=== PATIENT | male | born 1960 | race Caucasian/White ===

== ENCOUNTER 2018-02-06 13:05 | Emergency (ER) | payer OTHER ==
[2018-02-06 13:12] VITALS: BP 178/110; PULSE 88; TEMP 98.1; BMI 48.8
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
[2018-02-06] MEDS ORDERED: DIPHTH,PERTUSS(ACELL),TET 0.5 ML DISP.SYRIN IM ONE (13:38)
[2018-02-06] MEDS ORDERED: SULFAMETHOXAZOLE/TRIMETHOPRIM 800MG/160MG D.S. TABLET PO ONE (13:38)
[2018-02-06] MEDS ORDERED: SULFAMETHOXAZOLE/TRIMETHOPRIM 800MG/160MG D.S. TABLET ONE (13:43)
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
== END 2018-02-06 14:02 | disposition home or self-care (01) ==
LOC: JER 13:05
PROC: 3E0234Z Introduction of Serum, Toxoid and Vaccine into Muscle, Percutaneous Approach (ICD-10-PCS; principal; 2018-02-06)
DX: S31.114A Laceration without foreign body of abdominal wall, left lower quadrant without penetration into peritoneal cavity, initial encounter (principal); X99.8XXA Assault by other sharp object, initial encounter; Y93.89 Activity, other specified; Y92.414 Local residential or business street as the place of occurrence of the external cause; Y99.8 Other external cause status; I10 Essential (primary) hypertension; E11.9 Type 2 diabetes mellitus without complications; J44.9 Chronic obstructive pulmonary disease, unspecified; G47.33 Obstructive sleep apnea (adult) (pediatric); Z88.1 Allergy status to other antibiotic agents
CPT/HCPCS: 90471; 90715; 99281-25

== ENCOUNTER 2018-02-11 22:29 | Emergency (ER) | payer OTHER ==
[2018-02-11 22:39] VITALS: BP 160/00; PULSE 88; TEMP 98; BMI 47.5
--- NOTE | 2018-02-11 22:56 | PDOC ---
History of Present Illness - General Chief Complaint: Wound Stated Complaint: WOUND Time Seen by Provider: 02/11/18 22:47 History Source: Patient - History of Present Illness Initial Comments: 02/11/18 23:08 58 year old male left abdominal wound seen in the ED 2 days ago. patient here for a wound check Past History - Past Medical History Allergies/Adverse Reactions: Allergies Allergy/AdvReac Type Severity Reaction Status Date / Time vancomycin Allergy Intermediate Hives Verified 02/11/18 22:40 Penicillins Allergy Verified 02/11/18 22:40 Home Medications: Ambulatory Orders Amlodipine/Valsartan [Exforge 10-320 mg Tablet] 1 tab PO DAILY 12/08/13 Aspirin [ASA -] 81 mg PO DAILY 12/08/13 Albuterol Sulfate Inhaler - [Ventolin HFA Inhaler -] 90 mcg IN Q4HWA PRN Mometasone Furoate [Asmanex] 220 mcg IH BID 05/12/15 Naproxen [EC-Naprosyn 375 MG] 375 mg PO BID 05/12/15 Clindamycin [Cleocin -] 450 mg PO Q6HPO #30 capsule 05/14/15 Ibuprofen [Motrin -] 400 mg PO QID PRN #20 tablet 07/05/15 Sulfamethoxazole/Trimethoprim [Bactrim Ds -] 1 tab PO BID #14 tablet 02/06/18 COPD: Yes Diabetes: Yes HTN: Yes - Surgical History Abdominal Surgery: Yes (UMBILICAL HERNIA) Appendectomy: Yes - Immunization History Immunization Up to Date: Yes - Suicide/Smoking/Psychosocial Hx Smoking Status: No Smoking History: Never smoked Have you smoked in the past 12 months: No Number of Cigarettes Smoked Daily: 0 Hx Alcohol Use: No Drug/Substance Use Hx: No Substance Use Type: None Hx Substance Use Treatment: No *Physical Exam - Vital Signs Last Vital Signs Temp Pulse Resp BP Pulse Ox 98 F 88 24 160/00 96 02/11/18 22:38 02/11/18 22:38 02/11/18 22:38 02/11/18 22:38 02/11/18 22:38 - Physical Exam General Appearance: Yes: Appropriately Dressed Respiratory/Chest: positive: Labored Respiration (normal as per patient. current everyday smoker) *DC/Admit/Observation/Transfer Diagnosis at time of Disposition: Visit for wound check - Discharge Dispostion Disposition: HOME - Referrals - Patient Instructions Printed Discharge Instructions: DI for Wound Infection Additional Instructions: keep wound clean and dry. start your antibiotics as prescribed. follow up with your doctor as soon as possible. return to the ER if symptoms worsen. - Post Discharge Activity
== END 2018-02-11 23:19 | disposition home or self-care (01) ==
LOC: JER 22:29
DX: Z48.02 Encounter for removal of sutures (principal)
CPT/HCPCS: 99281-25

== ENCOUNTER 2019-03-22 15:02 | Emergency (ER) | payer OTHER ==
[2019-03-22 15:13] VITALS: TEMP 97.9; BMI 40.6
--- NOTE | 2019-03-22 15:14 | PDOC ---
Rapid Medical Evaluation Time Seen by Provider: 03/22/19 15:08 Medical Evaluation: Allergies Allergy/AdvReac Type Severity Reaction Status Date / Time vancomycin Allergy Intermediate Hives Verified 02/11/18 22:40 Penicillins Allergy Verified 02/11/18 22:40 03/22/19 15:09 I have performed a brief in-person evaluation of this patient. The patient presents with a chief complaint of: Facial droop/numbness, unable to close R eye x 4 days, no weakness to extremities, STONE, dizziness, visual changes, n/v. Morbid obesity, HTN, borderline DM, refuses all meds per pt Pertinent physical exam findings: Significantly hypertensive w/ R facial droop w / inability to close R eye or raise R brow c/w Rose's I have ordered the following: CT head/labs The patient will proceed to the ED for further evaluation. 03/22/19 15:15 Discharge Disposition - Diagnosis Facial droop - Referrals - Patient Instructions - Post Discharge Activity
[2019-03-22] MEDS ORDERED: SODIUM CHLORIDE 1,000 ML IV STA (15:37)
--- NOTE | 2019-03-22 15:37 | PDOC ---
History of Present Illness - General Chief Complaint: CVA/TIA Stated Complaint: INFECTION Time Seen by Provider: 03/22/19 15:08 History Source: Patient Exam Limitations: No Limitations - History of Present Illness Initial Comments: 03/22/19 15:55 59 yo M with a hx of HTN and HLD who is a chronic marijuana smoker (last use today) presents to the emergency department with right sided facial droop for the previous 4 days. Per the patient, he has had this before 4 months ago that resolved spontaneously in less than a few days. He stated the right sided facial droop occurred spontaneously, denying trauma, RUE and RLE weakness, headaches, nausea, vomiting, and lightheadedness. He endorses right visual blurriness. He states he is non compliant with his medications and states he used to be on aspirin but "months ago". Denies a hx of CVA and OH. No hx of arrhythmia. Denies the following: fevers, chills, chest pain, SOB, abdominal pain, dysuria, hematuria, diarrhea, leg pain/swelling, and hematochezia. Shx: Hernia repair, appendectomy Meds: None Allergies: PCN, vancomycin. Social: Denies tobacco and alcohol. ENdorses marijuana smoking. Past History - Past Medical History Allergies/Adverse Reactions: Allergies Allergy/AdvReac Type Severity Reaction Status Date / Time vancomycin Allergy Intermediate Hives Verified 02/11/18 22:40 Penicillins Allergy Verified 02/11/18 22:40 Home Medications: Ambulatory Orders Amlodipine/Valsartan [Exforge 10-320 mg Tablet] 1 tab PO DAILY 12/08/13 Aspirin [ASA -] 81 mg PO DAILY 12/08/13 Albuterol Sulfate Inhaler - [Ventolin HFA Inhaler -] 90 mcg IN Q4HWA PRN Mometasone Furoate [Asmanex] 220 mcg IH BID 05/12/15 Naproxen [EC-Naprosyn 375 MG] 375 mg PO BID 05/12/15 Clindamycin [Cleocin -] 450 mg PO Q6HPO #30 capsule 05/14/15 Ibuprofen [Motrin -] 400 mg PO QID PRN #20 tablet 07/05/15 Sulfamethoxazole/Trimethoprim [Bactrim Ds -] 1 tab PO BID #14 tablet 03/30/18 Polyvinyl Alcohol/Povidone [Artificial Tears Drops] 15 ml OP DAILY PRN #2 drops 03/22/19 Valacyclovir HCl [Valtrex -] 1,000 mg PO TID #21 tablet 03/22/19 predniSONE [Deltasone -] 60 mg PO DAILY #21 tablet 03/22/19 COPD: Yes Diabetes: Yes HTN: Yes - Surgical History Abdominal Surgery: Yes (UMBILICAL HERNIA) Appendectomy: Yes - Immunization History Immunization Up to Date: No - Suicide/Smoking/Psychosocial Hx Smoking Status: No Smoking History: Current every day smoker Have you smoked in the past 12 months: No Number of Cigarettes Smoked Daily: 0 Information on smoking cessation initiated: No Hx Alcohol Use: No Drug/Substance Use Hx: Yes (MARIJUANA) Substance Use Type: None Hx Substance Use Treatment: No *Physical Exam - Vital Signs Last Vital Signs Temp Pulse Resp BP Pulse Ox 97.9 F 83 18 183/122 H 95 03/22/19 15:10 03/22/19 15:10 03/22/19 15:10 03/22/19 15:10 03/22/19 15:10 - Physical Exam General Appearance: Yes: Nourished, Appropriately Dressed, Obese. No: Apparent Distress, Intoxicated HEENT: positive: EOMI, CON, Normal Voice, Symmetrical, Pharynx Normal NIH Stroke Scale - Last Known Well Date/Time & Onset Date Last Known Well: 03/18/19 Time Last Known Well: 12:00 - Initial Evaluation Level of consciousness: Alert Ask patient the month and their age: Answers both correctly Ask patient to open & close eyes; make fist and let go: Obeys both correctly Best gaze (horizontal eye movement): Normal Visual field testing: No visual field loss Facial paresis (Show teeth/raise eyebrows/close eyes tight): Complete paralysis of one or both sides (Upper and lower face) Motor Function: Left Arm: Normal Motor Function: Right Arm: Normal (extends arm 90 (or 45) degrees for 10 seconds without drift Motor Function: Left Leg: Normal (extends leg 30 degrees for 5 seconds without drift) Motor Function: Right Leg: Normal (extends leg 30 degrees for 5 seconds without drift) Limb Ataxia: No ataxia Sensory(Use pinprick test arms,legs,trunk,face/side to side): Normal Best language (Describe picture, name items, read sentences): No Aphasia Dysarthria (read several words): Mild to moderate slurring of words Extinction and Inattention: No abnormality - Total Score NIH Stroke Scale Score: 4 tPA Exclusion Checklist 0-3hr - Time Elapsed Date last known well: 03/18/19 Time last known well: 12:00 Elaspsed time: 4 Day(s) and 5 Hour(s) and 38 Minutes - Thrombolytic Therapy Candidate Is the patient eligible for Thrombolytic Therapy?: No - Exclusion Criteria 0-3hr SBP greater than 185 or DBP greater than 110mmHg despite tx: No Recent IC/spinal surgery,head trauma or stroke w/in last 3mo: No Hx of previous IC hemorrhage, IC neoplasm, AVM or aneurysm: No Active internal bleeding: No Blding diathesis(low plt ct, inc PTT,INR>1.7 or use of NOAC): No Symptoms suggest subarachnoid hemorrhage: No CT demonstrates multilobar infarct(>1/3 cerebral hemiphere): No Arterial puncture at noncompressible site in previous 7 days: No Blood glucose concentration less than 50mg/dL (2.7mmol/L): No - Relative Exclusion Criteria 0-3h Life expectancy <1yr/severe co-morbid illness/[employer] MA[employer]GER on admit: No : No Patient/family refused: No Rapid improvement: No Stroke severity too mild: Yes Recent acute OH (w/in previous 3 months): No Seizure at onset with postictal residual neuro impairments: No Major surgery or serious trauma w/in previous 14 days: No Recent GI or hemorrhage (w/in previous 21 days): No - Ineligibility reason(s) Reasons No tPA given: Outside of window - delayed arrival *DC/Admit/Observation/Transfer Diagnosis at time of Disposition: Facial droop - Discharge Dispostion Disposition: HOME Decision to Admit order: No - Prescriptions Prescriptions: Polyvinyl Alcohol/Povidone [Artificial Tears Drops] 15 ml OP DAILY PRN #2 drops PRN Reason: Dry Eyes predniSONE [Deltasone -] 60 mg PO DAILY #21 tablet Valacyclovir HCl [Valtrex -] 1,000 mg PO TID #21 tablet - Referrals Referrals: Dani Julien [Primary Care Provider] - - Patient Instructions Printed Discharge Instructions: DI for Rose's Palsy Additional Instructions: you were seen for your facial droop. your head ct does not show a head bleed. please take the medications as prescribed. please return to the emergency department if you have worsening symptoms or new concerning symptoms such as arm or leg weakness, worsening slurred speech, and confusion. thank you. - Post Discharge Activity Forms/Work/School Notes: Back to Work
[2019-03-22 15:38] LABS: BASO % 0.4 % (0-2.0); EOS % 1.3 % (0-4.5); HEMOGLOBIN 17.8 GM/dL (11.7-16.9); MCH 30.6 pg (25.7-33.7); MCHC 33.6 g/dl (32.0-35.9); MEAN CELL VOLUME 91.3 fl (80-96); MEAN PLT VOLUME 8.9 fl (7.5-11.1); MONO % 5.7 % (3.8-10.2); NEUT % 65.6 % (42.8-82.8); PLATELET COUNT 296 K/MM3 (134-434); RDW 13.1 % (11.9-15.9); WHITE BLOOD COUNT 11.1 K/mm3 (4.0-10.0)
[2019-03-22 15:58] LABS: ALBUMIN 3.7 g/dl (3.4-5.0); ALK PHOS 70 U/L (45-117); ANION GAP 7 MMOL/L (8-16); BILIRUBIN,TOTAL 0.8 mg/dL (0.2-1); BLOOD UREA NITROGEN 20 mg/dL (7-18); CALCIUM 9.4 mg/dL (8.5-10.1); CHLORIDE 100 mmol/L (98-107); CO2 27 mmol/L (21-32); GLUCOSE,RANDOM 200 mg/dL (74-106); POTASSIUM 4.2 mmol/L (3.5-5.1); SGOT/AST 28 U/L (15-37); SGPT/ALT 43 U/L (13-61); SODIUM 134 mmol/L (136-145); TOT PROT 7.3 g/dl (6.4-8.2)
[2019-03-22 16:24] LABS: CHOLESTEROL 158 mg/dL (50-200); HDL CHOLESTEROL 40 mg/dL (40-60); TRIGLYCERIDES 196 mg/dL (0-150)
[2019-03-22 16:27] LABS: INR 1.03 (0.83-1.09); PROTHROMBIN TIME (PATIENT) 12.1 SEC (9.7-13.0)
--- NOTE | 2019-03-22 17:32 | PDOC ---
Documentation entered by Brennon Agee SCRIBE, acting as scribe for Cody Gonzalez MD. Cody Gonzalez MD: This documentation has been prepared by the Anuel cobb Matthew, SCRIBE, under my direction and personally reviewed by me in its entirety. I confirm that the documentation accurately reflects all work, treatment, procedures, and medical decision making performed by me. Attending Attestation - Resident Resident Name: Bernardo Sal - ED Attending Attestation I have performed the following: I have examined & evaluated the patient, The case was reviewed & discussed with the resident, I agree w/resident's findings & plan, Exceptions are as noted - HPI HPI: 03/22/19 17:40 59 year old male with history of HTN, DM presents with several days of right facial droop. He noted that he was unable to close right eye all the way and feels some numbness along the right side of face. No affect on his upper or lower extremities. His twin brother also had Rose's palsy prior. No recent illnesses. no camping or recent travelling. Unable to wrinkle right forehead. - Physicial Exam PE: 03/22/19 17:50 GENERAL: Awake, alert, and fully oriented, in no acute distress HEAD: No signs of trauma EYES: EOMI, sclera anicteric, conjunctiva clear ENT: Auricles normal inspection, hearing grossly normal, nares patent, Moist mucosa NECK: Normal ROM, supple, LUNGS: Breath sounds equal, clear to auscultation bilaterally. No wheezes, and no crackles HEART: Regular rate and rhythm, normal S1 and S2, no murmurs, rubs or gallops ABDOMEN: Soft, nontender, No guarding, no rebound. No masses EXTREMITIES: Normal range of motion, no edema. No clubbing or cyanosis. No cords, erythema, or tenderness NEUROLOGICAL: Normal speech, R sided facial droop, unable to close R eyelid all the way, unable to wrinkle R forehead. no pronator drift, 5/5 strength upper and lower extremities. Sensation intact throughout. Finger to nose intact. SKIN: Warm, Dry, normal turgor, no rashes or lesions noted. - Medical Decision Making 03/22/19 17:55 Vital Signs Temp Pulse Resp BP Pulse Ox 97.9 F 80 20 170/98 96 03/22/19 15:10 03/22/19 17:30 03/22/19 17:30 03/22/19 17:30 03/22/19 17:[address] and labs reviewed. No acute findings. Pt's physical findings c/w rose's palsy. Artificial tears for the eyes. Tape eyelids when sleeping. Prednisone 60 mg x 7 days. Valacyclovir 1000 mg TID x 7 days. Follow up with PMD Heart Score/ECG Review #1 ECG reviewed & interpreted by me at: 16:50 03/22/19 17:33 NSR 81, QTC 499 msec, no std/emilee, normal axis, normal intervals NIH Stroke Scale - Last Known Well Date/Time & Onset Date Last Known Well: 03/18/19 - Initial Evaluation Level of consciousness: Alert Ask patient the month and their age: Answers both correctly Ask patient to open & close eyes; make fist and let go: Obeys both correctly Best gaze (horizontal eye movement): Normal Visual field testing: No visual field loss Facial paresis (Show teeth/raise eyebrows/close eyes tight): Complete paralysis of one or both sides (Upper and lower face) Motor Function: Left Arm: Normal Motor Function: Right Arm: Normal (extends arm 90 (or 45) degrees for 10 seconds without drift Motor Function: Left Leg: Normal (extends leg 30 degrees for 5 seconds without drift) Motor Function: Right Leg: Normal (extends leg 30 degrees for 5 seconds without drift) Limb Ataxia: No ataxia Sensory(Use pinprick test arms,legs,trunk,face/side to side): Normal Best language (Describe picture, name items, read sentences): No Aphasia Dysarthria (read several words): Normal articulation Extinction and Inattention: No abnormality - Total Score NIH Stroke Scale Score: 3
[2019-03-22] MEDS ORDERED: ONDANSETRON 4 MG/2 ML VIAL IVPUSH ONE (17:36)
[2019-03-22] MEDS ORDERED: ONDANSETRON 4 MG/2 ML VIAL ONE (17:52)
[2019-03-22 18:23] VITALS: BP 151/102; PULSE 78
--- NOTE | 2019-03-23 12:09 | EKG ---
Test Reason : Blood Pressure : / mmHG Vent. Rate : 081 BPM Atrial Rate : 081 BPM P-R Int : 154 ms QRS Dur : 080 ms QT Int : 430 ms P-R-T Axes : 053 003 051 degrees QTc Int : 499 ms NORMAL SINUS RHYTHM PROLONGED QT ABNORMAL ECG WHEN COMPARED WITH ECG OF 12-OCT-2004 11:48, T WAVE AMPLITUDE HAS DECREASED IN ANTEROLATERAL LEADS Confirmed by MD Art, Rafi ([id number]) on 03/23/2019 12:08:49 PM Referred By: Confirmed By:Rafi Cordova MD
== END 2019-03-22 18:25 | disposition home or self-care (01) ==
LOC: JER 15:02
PROC: 3E0337Z Introduction of Electrolytic and Water Balance Substance into Peripheral Vein, Percutaneous Approach (ICD-10-PCS; principal; 2019-03-22)
DX: R29.810 Facial weakness (principal); E78.5 Hyperlipidemia, unspecified; I10 Essential (primary) hypertension; J44.9 Chronic obstructive pulmonary disease, unspecified; E11.9 Type 2 diabetes mellitus without complications; F17.210 Nicotine dependence, cigarettes, uncomplicated
CPT/HCPCS: 36415; 70450-TC; 71045-TC-FY; 80053; 80061; 81003; 82550; 83721; 84484; 85025; 85610; 93005; 93010; 99283-25; J7030

== ENCOUNTER 2019-04-05 19:32 | Emergency (ER) | payer OTHER | END 2019-04-05 21:16 | disposition home or self-care (01) | LOC: JER 19:32 ==

== ENCOUNTER 2019-08-14 16:19 | Emergency (ER) | payer OTHER ==
[2019-08-14 16:41] VITALS: BP 152/87; PULSE 84; TEMP 98.6; BMI 43.3
--- NOTE | 2019-08-14 16:48 | PDOC ---
History of Present Illness - General Chief Complaint: Wound Stated Complaint: INFECTION ON SKIN - History of Present Illness Initial Comments: The pt is a 59M w/ a history of HTN, HLD, and chronic inguinal tinea who presents for a right thumb lesion that has been present for 1 month which is now itching and cracked. The pt endorses sharp pain at the site of the lesion that does not radiate is worse with movement and touch and is not alleviated by anything he can identify. He also presents for penile itching which has been chronic and intermittently alleviated by nystatin powder. He is out of the powder and has not been using a drying powder throughout the day to prevent symptoms. Denies fevers/chills, chest pain, trouble breathing, dysuria, hematura, penile discharge, or changes in sensation 08/14/19 17:22 Past History - Past Medical History Allergies/Adverse Reactions: Allergies Allergy/AdvReac Type Severity Reaction Status Date / Time vancomycin Allergy Intermediate Hives Verified 08/14/19 16:30 Penicillins Allergy Verified 08/14/19 16:30 Home Medications: Ambulatory Orders Amlodipine/Valsartan [Exforge 10-320 mg Tablet] 1 tab PO DAILY 12/08/13 Aspirin [ASA -] 81 mg PO DAILY 12/08/13 Albuterol Sulfate Inhaler - [Ventolin HFA Inhaler -] 90 mcg IN Q4HWA PRN Mometasone Furoate [Asmanex] 220 mcg IH BID 05/12/15 Naproxen [EC-Naprosyn 375 MG] 375 mg PO BID 05/12/15 Ibuprofen [Motrin -] 400 mg PO QID PRN #20 tablet 07/05/15 Sulfamethoxazole/Trimethoprim [Bactrim Ds -] 1 tab PO BID #14 tablet 02/06/18 Valacyclovir HCl [Valtrex -] 1,000 mg PO TID #21 tablet 03/22/19 Clindamycin [Cleocin -] 450 mg PO Q6H #28 capsule 04/05/19 Polyvinyl Alcohol/Povidone [Artificial Tears Drops] 15 ml OD PRN #2 bottle 04/05 predniSONE [Deltasone -] 60 mg PO DAILY #30 tablet 04/05/19 Dextran 70/Hypromellose/Pf [Artificial Tears Drops] 1 each OD TID #1 bottle 03/28 Mineral Oil/Pet Hy-Phl [Aquaphor] 1 applic TP DAILY #1 jar 08/14/19 Nystatin Powder [Nystop Powder -] 15 gm TP BID #1 bottle 08/14/19 Sulfamethoxazole/Trimethoprim [Bactrim Ds -] 1 tab PO BID #14 tablet 08/14/19 COPD: Yes Diabetes: Yes HTN: Yes - Surgical History Abdominal Surgery: Yes (UMBILICAL HERNIA) Appendectomy: Yes - Immunization History Immunization Up to Date: No - Psycho Social/Smoking Cessation Hx Smoking Status: No Smoking History: Former smoker Have you smoked in the past 12 months: No Number of Cigarettes Smoked Daily: 0 If you are a former smoker, when did you quit?: 2018 Information on smoking cessation initiated: No Hx Alcohol Use: No Drug/Substance Use Hx: No Substance Use Type: None Hx Substance Use Treatment: No Review of Systems - Review of Systems Able to Perform ROS?: Yes Comments:: GENERAL/CONSTITUTIONAL: No fever or chills. No weakness HEAD, EYES, EARS, NOSE AND THROAT: No change in vision. No change in hearing. No sore throat CARDIOVASCULAR: No chest pain or shortness of breath RESPIRATORY: Denies cough, hemoptysis GASTROINTESTINAL: No nausea, vomiting, diarrhea or constipation. GENITOURINARY: No dysuria, frequency, or change in urination MUSCULOSKELETAL: No joint or muscle swelling or pain. No neck or back pain SKIN: +right thumb lesion and balanitis NEUROLOGIC: No headache, vertigo, loss of consciousness, or change in strength/ sensation ENDOCRINE: No increased thirst. No abnormal weight change HEMATOLOGIC/LYMPHATIC: No anemia, easy bleeding, or history of blood clots ALLERGIC/IMMUNOLOGIC: No hives or skin allergy 08/14/19 16:47 Is the patient limited Maldivian proficient: No *Physical Exam - Vital Signs Last Vital Signs Temp Pulse Resp BP Pulse Ox 98.6 F 84 20 152/87 99 08/14/19 16:33 08/14/19 16:33 08/14/19 16:33 08/14/19 16:33 08/14/19 16:33 - Physical Exam Comments: GENERAL: Awake, alert, and oriented to person/place/time, in no acute distress HEAD: No signs of trauma, normocephalic, atraumatic EYES: PERRLA, EOMI, sclera anicteric, conjunctiva clear ENT: Hearing grossly normal, nares patent, oropharynx clear without exudates. Moist mucosa LUNGS: No distress, speaks in full sentences, clear to auscultation bilaterally HEART: Regular rate and rhythm, normal S1 and S2, no murmurs appreciated, peripheral pulses normal and equal bilaterally ABDOMEN: Soft, protuberant, nontender, normoactive bowel sounds. No guarding, no rebound. No masses : Balanitis w/o cellulitis, no scrotal erythema or testicular pain, no fungal infection in groin creases, no penile discharge EXTREMITIES: R thumb wart lesion with open cut w/o surrounding cellulitis NEUROLOGICAL: Cranial nerves II through XII grossly intact. Normal speech, normal gait, no focal sensorimotor deficits SKIN: Warm, Dry, and lesion as above 08/14/19 16:48 Medical Decision Making - Medical Decision Making The pt is a 59M w/ a history of DM, HTN, HLD who presents for evaluation of a right hand lesion and balanitis ED Course Rx for Bactrim, Nystatin powder, aquaphor, and eye drops sent to pt's pharmacy Referrals for dermatology and urology provided Pt educated on wound care and keeping affected area more dry and applying moisturizer and neosporin to his right hand Plan for D/C w/ PCP and specialists Discharge instruction and return precautions given Pt in agreement and verbalized understanding Dispo: home 08/14/19 17:17 Discharge - Discharge Information Problems reviewed: Yes Clinical Impression/Diagnosis: Balanitis, Rose's palsy Open wound of right hand Qualifiers: Encounter type: initial encounter Open wound type: unspecified Foreign body presence: without foreign body Qualified Code(s): S61.401A - Unspecified open wound of right hand, initial encounter Condition: Stable Disposition: HOME - Admission No - Additional Discharge Information Prescriptions: Dextran 70/Hypromellose/Pf [Artificial Tears Drops] 1 each OD TID #1 bottle Mineral Oil/Pet Hy-Phl [Aquaphor] 1 applic TP DAILY #1 jar Nystatin Powder [Nystop Powder -] 15 gm TP BID #1 bottle Sulfamethoxazole/Trimethoprim [Bactrim Ds -] 1 tab PO BID #14 tablet - Follow up/Referral Referrals: Dani Julien [Primary Care Provider] - Guerita Martinez MD [Staff Physician] - Christopher Monaco MD [Non Staff, Medical] - Dani Cortes MD [Non Staff, Medical] - Jaspal Oreilly MD [Staff Physician] - Jesus Serrato MD [Staff Physician] - - Patient Discharge Instructions Patient Printed Discharge Instructions: DI for Balanitis, DI for Jock Itch Additional Instructions: You were seen in the Emergency Department for evaluation of balanitis ( inflammation of the glands of the penis) and a right hand lesion. A prescription was sent to your pharmacy for antibiotics, nystatin powder, aquaphor, and eye drops, take as directed. Review the handouts provided at discharge. Follow up with the dermatology and urology referrals given. Also follow up with your primary care provider. Return to the Emergency Department if you develop fevers/chills, chest pain, trouble breathing, abdominal pain, blood in your urine/stool, worsening symptoms, or any new/concerning symptoms. - Post Discharge Activity
--- NOTE | 2019-08-14 17:01 | PDOC ---
Attending Attestation - Resident Resident Name: KirbyRishi - ED Attending Attestation I have performed the following: I have examined & evaluated the patient, The case was reviewed & discussed with the resident, I agree w/resident's findings & plan, Exceptions are as noted - HPI HPI: 08/14/19 17:32 Mr Aranda is a 59 M w/ a history of HTN, HLD, and chronic inguinal tinea who presents for a right thumb lesion that has been present for 1 month which is now itching and cracked. No drainage. No erythema. Pt was tempted to file down the lesion with an [employer] board (but did not) As a result of his hand dryness, he has noticed painful skin cracking, no active bleeding Pt also notes, that he has had penile itching He was seen by his doctor was previously and started on nystatin powder. Patient uses this intermittently. He notes that his penile region is pruritic, and this is resulted in excoriation of his skin. No fevers or chills. No surrounding erythema No drainage No history of STDs 08/14/19 17:22 - Physicial Exam PE: 08/14/19 17:01 GENERAL: The patient is in no acute distress, ENT: Ears normal, nares patent, oropharynx clear without exudates. Moist mucous membranes. No oral lesions NECK: Normal range of motion, supple LUNGS: Breath sounds equal, clear to auscultation bilaterally. No wheezes, and no crackles. HEART:Regular rate and rhythm, normal S1 and S2 without murmur, rub or gallop. ABDOMEN: Soft, protruberant, nontender, normoactive bowel sounds. EXTREMITIES: Normal range of motion, no edema. NEUROLOGICAL: Cranial nerves II through XII grossly intact. Normal speech. No focal neurological deficits. SKIN: Warm, Dry, normal turgor, no rashes or lesions noted. Penis: several superficial excoriated lesions on the shaft of the penis, no erythema No groin erythema or sattelite lesions Right thumb with 2cm fungal lesion No perinneal erythema or necrosis 08/14/19 18:03 - Medical Decision Making 08/14/19 18:05 Will 1) refer to derm for removal of right thumb wart 2) bacitracin for the skin cracking to prevent infection 3) Penile changes - will give abx, nystatin, emollient cream to prevent skin break down 4) Pt asked to dry his skin completely before getting dressed Will discharge to home Will ask pt to follow up with Derm and Urology Return to the ER for any other concerns or complaints
[2019-08-14] MEDS ORDERED: SULFAMETHOXAZOLE/TRIMETHOPRIM 800MG/160MG D.S. TABLET PO ONE (17:24)
[2019-08-14] MEDS ORDERED: SULFAMETHOXAZOLE/TRIMETHOPRIM 800MG/160MG D.S. TABLET ONE (17:37)
== END 2019-08-14 18:07 | disposition home or self-care (01) ==
LOC: JER 16:19
DX: N48.1 Balanitis (principal); L98.8 Other specified disorders of the skin and subcutaneous tissue; S61.001A Unspecified open wound of right thumb without damage to nail, initial encounter; X58.XXXA Exposure to other specified factors, initial encounter; Y93.9 Activity, unspecified; Y92.018 Other place in single-family (private) house as the place of occurrence of the external cause; Y99.8 Other external cause status; I10 Essential (primary) hypertension; E11.9 Type 2 diabetes mellitus without complications; J44.9 Chronic obstructive pulmonary disease, unspecified; E78.5 Hyperlipidemia, unspecified; B35.8 Other dermatophytoses; Z88.0 Allergy status to penicillin; Z88.1 Allergy status to other antibiotic agents
CPT/HCPCS: 99282-25

== ENCOUNTER 2022-05-28 11:38 | Observation (INO) | payer OTHER ==
[2022-05-28 13:01] VITALS: BMI 34.3
[2022-05-28 16:39] LABS: BASO % 0.5 % (0-2.0); EOS % 1.2 % (0-4.5); HEMATOCRIT 44.9 % (35.4-49); HEMOGLOBIN 15.5 GM/dL (11.7-16.9); LYMPH % 18.8 % (8-40); MCH 31.2 pg (25.7-33.7); MCHC 34.6 g/dl (32.0-35.9); MEAN CELL VOLUME 90.1 fl (80-96); NEUT % 70.5 % (42.8-82.8); PLATELET COUNT 395 10^3/uL (134-434); RBC 4.98 M/mm3 (4.00-5.60); RDW 12.5 % (11.9-15.9); WHITE BLOOD COUNT 9.4 K/mm3 (4.0-10.0)
[2022-05-28 16:48] LABS: CALCIUM 9.2 mg/dL (8.5-10.1)
[2022-05-28 16:49] LABS: ALBUMIN 3.7 g/dl (3.4-5.0)
[2022-05-28 16:50] LABS: BLOOD UREA NITROGEN 38.1 mg/dL (7-18)
[2022-05-28 16:52] LABS: CREATININE 1.9 mg/dL (0.55-1.3)
[2022-05-28 16:55] LABS: BILIRUBIN,TOTAL 0.9 mg/dL (0.2-1)
[2022-05-28 16:57] LABS: INR 1.12 (0.83-1.09); PROTHROMBIN TIME (PATIENT) 12.9 SEC (9.7-13.0)
[2022-05-28 16:59] LABS: ACTIVATED PTT 38.5 SECONDS (25.2-36.5)
[2022-05-28] MEDS ORDERED: ACETAMINOPHEN 1000 MG/100 ML BAG IVPB ONE (17:30)
[2022-05-28] MEDS ORDERED: ACETAMINOPHEN INJECTION 100 ML IVPB ONE (17:43)
[2022-05-29] MEDS: SODIUM CHLORIDE 1,000 ML IV SCH (01:22)
[2022-05-29] MEDS: INSULIN SLIDING SCALE (NOVOLOG) 1 VIAL SQ SCH ×5 (01:22→21:08)
[2022-05-29] MEDS: HEPARIN NA (PORCINE) 5,000 UNITS/ML 1ML VIAL SQ SCH ×3 (06:02→21:07)
[2022-05-29 08:25] LABS: BASO % 0.6 % (0-2.0); HEMATOCRIT 44.5 % (35.4-49); HEMOGLOBIN 15.2 GM/dL (11.7-16.9); LYMPH % 23.3 % (8-40); MCH 30.7 pg (25.7-33.7); MEAN CELL VOLUME 90.2 fl (80-96); MEAN PLT VOLUME 9.1 fl (7.5-11.1); MONO % 10.1 % (3.8-10.2); PLATELET COUNT 323 10^3/uL (134-434); RBC 4.94 M/mm3 (4.00-5.60); RDW 12.8 % (11.9-15.9); WHITE BLOOD COUNT 8.8 K/mm3 (4.0-10.0)
[2022-05-29 08:47] LABS: ALBUMIN 3.5 g/dl (3.4-5.0)
[2022-05-29 08:48] LABS: CALCIUM 9.1 mg/dL (8.5-10.1)
[2022-05-29 08:49] LABS: MAGNESIUM 2.3 mg/dL (1.8-2.4)
[2022-05-29 08:51] LABS: BLOOD UREA NITROGEN 37.7 mg/dL (7-18)
[2022-05-29 08:52] LABS: PHOSPHOROUS 4.6 mg/dL (2.5-4.9)
[2022-05-29 08:53] LABS: BILIRUBIN,TOTAL 0.8 mg/dL (0.2-1); CREATININE 1.6 mg/dL (0.55-1.3)
[2022-05-29 08:54] LABS: TOT PROT 6.7 g/dl (6.4-8.2)
[2022-05-29] MEDS: ASPIRIN 81 MG CHEWABLE TABLETS PO SCH (09:43)
[2022-05-29] MEDS: ATORVASTATIN CA 40 MG TABLET (FP) PO SCH (21:07)
[2022-05-30] MEDS: SODIUM CHLORIDE 1,000 ML IV SCH ×2 (06:18→23:15)
[2022-05-30] MEDS: HEPARIN NA (PORCINE) 5,000 UNITS/ML 1ML VIAL SQ SCH ×3 (06:18→21:33)
[2022-05-30] MEDS: INSULIN SLIDING SCALE (NOVOLOG) 1 VIAL SQ SCH ×4 (06:19→21:34)
[2022-05-30 08:50] LABS: HEMATOCRIT 45.4 % (35.4-49); HEMOGLOBIN 15.7 GM/dL (11.7-16.9); MCH 31.2 pg (25.7-33.7); MCHC 34.6 g/dl (32.0-35.9); MEAN PLT VOLUME 9.8 fl (7.5-11.1); PLATELET COUNT 353 10^3/uL (134-434); RBC 5.04 M/mm3 (4.00-5.60); RDW 12.8 % (11.9-15.9); WHITE BLOOD COUNT 7.1 K/mm3 (4.0-10.0)
[2022-05-30 09:01] LABS: BLOOD UREA NITROGEN 30.2 mg/dL (7-18); MAGNESIUM 2.2 mg/dL (1.8-2.4)
[2022-05-30 09:04] LABS: CREATININE 1.4 mg/dL (0.55-1.3)
[2022-05-30] MEDS: ASPIRIN 81 MG CHEWABLE TABLETS PO SCH (11:11)
[2022-05-30] MEDS ORDERED: INSULIN (NOVOLOG) ASPART 100 UNITS/ML 10ML VIAL ONE (21:16)
[2022-05-30] MEDS: ATORVASTATIN CA 40 MG TABLET (FP) PO SCH (21:33)
[2022-05-31] MEDS: HEPARIN NA (PORCINE) 5,000 UNITS/ML 1ML VIAL SQ SCH ×3 (06:24→22:12)
[2022-05-31] MEDS: INSULIN SLIDING SCALE (NOVOLOG) 1 VIAL SQ SCH ×4 (06:28→22:18)
[2022-05-31 08:56] LABS: BASO % 0.5 % (0-2.0); EOS % 3.1 % (0-4.5); HEMATOCRIT 41.9 % (35.4-49); HEMOGLOBIN 14.4 GM/dL (11.7-16.9); LYMPH % 27.6 % (8-40); MCHC 34.4 g/dl (32.0-35.9); MEAN CELL VOLUME 90.2 fl (80-96); MEAN PLT VOLUME 9.5 fl (7.5-11.1); MONO % 9.1 % (3.8-10.2); NEUT % 59.7 % (42.8-82.8); PLATELET COUNT 318 10^3/uL (134-434); RBC 4.64 M/mm3 (4.00-5.60); WHITE BLOOD COUNT 7.3 K/mm3 (4.0-10.0)
[2022-05-31] MEDS: ASPIRIN 81 MG CHEWABLE TABLETS PO SCH (09:21)
[2022-05-31] MEDS ORDERED: amLODIPine BESYLATE 5 MG TABLET (FP) PO ONE (12:02)
[2022-05-31 15:34] VITALS: RESP 18
[2022-05-31] MEDS: ATORVASTATIN CA 40 MG TABLET (FP) PO SCH (22:12)
[2022-06-01] MEDS: HEPARIN NA (PORCINE) 5,000 UNITS/ML 1ML VIAL SQ SCH (05:22)
[2022-06-01 06:10] VITALS: BP 136/96; PULSE 70; TEMP 98.4
[2022-06-01] MEDS: INSULIN SLIDING SCALE (NOVOLOG) 1 VIAL SQ SCH ×2 (06:30→10:11)
[2022-06-01 09:05] LABS: BASO % 0.5 % (0-2.0); EOS % 2.4 % (0-4.5); HEMATOCRIT 44.2 % (35.4-49); HEMOGLOBIN 15.4 GM/dL (11.7-16.9); MCH 31.3 pg (25.7-33.7); MCHC 34.9 g/dl (32.0-35.9); MEAN CELL VOLUME 89.5 fl (80-96); MEAN PLT VOLUME 9.3 fl (7.5-11.1); MONO % 7.9 % (3.8-10.2); NEUT % 60.2 % (42.8-82.8); PLATELET COUNT 369 10^3/uL (134-434); RBC 4.94 M/mm3 (4.00-5.60); RDW 12.9 % (11.9-15.9); WHITE BLOOD COUNT 8.2 K/mm3 (4.0-10.0)
[2022-06-01] MEDS: ASPIRIN 81 MG CHEWABLE TABLETS PO SCH (10:15)
== END 2022-06-01 14:15 ==
LOC: JER 11:38 → JERBED 17:30 → INTOOBSV 17:30 → J7W 05-29 00:22
PROVIDERS: ADMIT Internal Medicine; ATTEND Internal Medicine
PROC: 3E033NZ Introduction of Analgesics, Hypnotics, Sedatives into Peripheral Vein, Percutaneous Approach (ICD-10-PCS; principal; 2022-05-28)
PROC: 3E023GC Introduction of Other Therapeutic Substance into Muscle, Percutaneous Approach (ICD-10-PCS; 2022-05-28)
PROC: 3E013VG Introduction of Insulin into Subcutaneous Tissue, Percutaneous Approach (ICD-10-PCS; 2022-05-28)
DX: I25.10 Atherosclerotic heart disease of native coronary artery without angina pectoris (principal); E78.5 Hyperlipidemia, unspecified; I11.9 Hypertensive heart disease without heart failure; E11.9 Type 2 diabetes mellitus without complications; Z01.89 Encounter for other specified special examinations; E66.9 Obesity, unspecified; Z68.35 Body mass index [BMI] 35.0-35.9, adult; Z86.73 Personal history of transient ischemic attack (TIA), and cerebral infarction without residual deficits; N17.9 Acute kidney failure, unspecified; Z29.8 Encounter for other specified prophylactic measures; J45.909 Unspecified asthma, uncomplicated; R47.1 Dysarthria and anarthria; Z88.0 Allergy status to penicillin; Z87.891 Personal history of nicotine dependence; Z88.8 Allergy status to other drugs, medicaments and biological substances
CPT/HCPCS: 0241U-QW; 36415; 70450-TC; 71045-TC-FY; 76775-TC; 80048; 80053; 80061; 82550; 82962; 83036; 83735; 84100; 84484; 85025; 85027; 85610; 85730; 86850; 86900; 86901; 93005; 93010; 97116-GP; 97161-GP; 99285-25; G0378; J1644

== ENCOUNTER 2022-06-01 17:44 | Emergency (ER) | payer OTHER ==
[2022-06-01 18:17] VITALS: BP 121/79; PULSE 93; RESP 19; TEMP 98; BMI 38.9
[2022-06-03] MEDS ORDERED: ACETAMINOPHEN 325 MG TABLET (FP) PO PRN (19:34)
[2022-06-03] MEDS ORDERED: HEPARIN NA (PORCINE) 5,000 UNITS/ML 1ML VIAL SQ SCH (22:00)
[2022-06-04 07:11] LABS: HEMATOCRIT 40.6 % (35.4-49); HEMOGLOBIN 14.1 GM/dL (11.7-16.9); MCH 30.7 pg (25.7-33.7); MCHC 34.6 g/dl (32.0-35.9); MEAN CELL VOLUME 88.7 fl (80-96); MEAN PLT VOLUME 8.8 fl (7.5-11.1); PLATELET COUNT 301 10^3/uL (134-434); RBC 4.58 M/mm3 (4.00-5.60); RDW 12.6 % (11.9-15.9); WHITE BLOOD COUNT 9.1 K/mm3 (4.0-10.0)
[2022-06-04 07:22] LABS: CALCIUM 8.8 mg/dL (8.5-10.1)
[2022-06-04 07:23] LABS: ALBUMIN 3.1 g/dl (3.4-5.0); BLOOD UREA NITROGEN 24.9 mg/dL (7-18); MAGNESIUM 1.7 mg/dL (1.8-2.4)
[2022-06-04 07:26] LABS: CREATININE 1.3 mg/dL (0.55-1.3); PHOSPHOROUS 3.9 mg/dL (2.5-4.9)
[2022-06-04 07:28] LABS: BILIRUBIN,TOTAL 0.6 mg/dL (0.2-1); TOT PROT 6.2 g/dl (6.4-8.2)
== END 2022-06-01 23:57 ==
LOC: JER 17:44
DX: S80.219A Abrasion, unspecified knee, initial encounter (principal); W19.XXXA Unspecified fall, initial encounter; Y92.9 Unspecified place or not applicable
CPT/HCPCS: 36415; 70450-TC; 73562-TC-LT-FY; 73562-TC-RT-FY; 80053; 82962; 83735; 84100; 85027; 99281-25

== ENCOUNTER 2022-06-03 11:00 | Observation (INO) | payer OTHER ==
[2022-06-03 16:06] LABS: BASO % 0.4 % (0-2.0); EOS % 3.4 % (0-4.5); HEMATOCRIT 42.9 % (35.4-49); HEMOGLOBIN 14.6 GM/dL (11.7-16.9); LYMPH % 22.5 % (8-40); MCH 30.5 pg (25.7-33.7); MEAN CELL VOLUME 89.7 fl (80-96); MEAN PLT VOLUME 8.9 fl (7.5-11.1); NEUT % 65.7 % (42.8-82.8); PLATELET COUNT 335 10^3/uL (134-434); RBC 4.79 M/mm3 (4.00-5.60); RDW 13.1 % (11.9-15.9); WHITE BLOOD COUNT 8.8 K/mm3 (4.0-10.0)
[2022-06-03 16:38] LABS: CALCIUM 8.9 mg/dL (8.5-10.1)
[2022-06-03 16:39] LABS: ALBUMIN 3.5 g/dl (3.4-5.0); BLOOD UREA NITROGEN 23.8 mg/dL (7-18)
[2022-06-03 16:42] LABS: CREATININE 1.4 mg/dL (0.55-1.3)
[2022-06-03 16:44] LABS: BILIRUBIN,TOTAL 0.7 mg/dL (0.2-1); TOT PROT 6.6 g/dl (6.4-8.2)
[2022-06-04] MEDS ORDERED: ALBUTEROL SO4 HFA INHALER IH PRN (02:33)
[2022-06-04] MEDS ORDERED: ALBUTEROL SO4 0.083% IH SOL 2.5 MG/3 ML VIAL.NEB. NEB PRN (02:33)
[2022-06-04] MEDS ORDERED: hydrALAZINE HCL 50 MG TABLET (FP) ONE (05:03)
[2022-06-04] MEDS: MELATONIN 5 MG TABLETS PO PRN (05:06)
[2022-06-04] MEDS: hydrALAZINE HCL 50 MG TABLET (FP) PO SCH ×3 (05:21→22:31)
[2022-06-04 07:21] LABS: CALCIUM 8.8 mg/dL (8.5-10.1)
[2022-06-04 07:22] LABS: BLOOD UREA NITROGEN 26.8 mg/dL (7-18)
[2022-06-04 07:25] LABS: CREATININE 1.3 mg/dL (0.55-1.3)
[2022-06-04 11:07] VITALS: BMI 36.4
[2022-06-04] MEDS: LIDOCAINE 5% TOPICAL PATCH TP SCH ×2 (11:13→11:14)
[2022-06-04] MEDS: POLYETHYLENE GLYCOL (HEALTHYLAX) 3350 17 GM PACKET PO SCH (11:13)
[2022-06-04] MEDS: levETIRAcetam 500 MG TABLET (FP) PO SCH ×2 (11:14→22:31)
[2022-06-04] MEDS: LOSARTAN POTASSIUM 50 MG TABLET PO SCH (11:14)
[2022-06-04] MEDS: ASPIRIN 81 MG CHEWABLE TABLETS PO SCH (11:15)
[2022-06-04] MEDS: LABETALOL HCL 100 MG TABLET (FP) PO SCH ×2 (11:15→22:31)
[2022-06-04] MEDS: amLODIPine BESYLATE 5 MG TABLET (FP) PO SCH (11:15)
[2022-06-04] MEDS: BUDESONIDE/FORMETEROL FUMARATE 160/4.5 mcg INHALER IH SCH ×2 (11:51→22:59)
[2022-06-04] MEDS: ATORVASTATIN CA 40 MG TABLET (FP) PO SCH (22:31)
[2022-06-04] MEDS: LIDOCAINE PATCH REMOVAL MC SCH (22:59)
[2022-06-05] MEDS: hydrALAZINE HCL 50 MG TABLET (FP) PO SCH ×3 (06:32→21:40)
[2022-06-05] MEDS ORDERED: INSULIN (NOVOLOG) ASPART 100 UNITS/ML 10ML VIAL ONE (07:36)
[2022-06-05] MEDS: levETIRAcetam 500 MG TABLET (FP) PO SCH ×2 (10:17→21:40)
[2022-06-05] MEDS: ASPIRIN 81 MG CHEWABLE TABLETS PO SCH (10:17)
[2022-06-05] MEDS: LOSARTAN POTASSIUM 50 MG TABLET PO SCH (10:18)
[2022-06-05] MEDS: POLYETHYLENE GLYCOL (HEALTHYLAX) 3350 17 GM PACKET PO SCH (10:18)
[2022-06-05] MEDS: LABETALOL HCL 100 MG TABLET (FP) PO SCH ×2 (10:18→21:40)
[2022-06-05] MEDS: LIDOCAINE 5% TOPICAL PATCH TP SCH (10:18)
[2022-06-05] MEDS: BUDESONIDE/FORMETEROL FUMARATE 160/4.5 mcg INHALER IH SCH ×2 (10:19→21:41)
[2022-06-05] MEDS: amLODIPine BESYLATE 5 MG TABLET (FP) PO SCH (10:20)
[2022-06-05 12:09] LABS: BLOOD UREA NITROGEN 20.8 mg/dL (7-18)
[2022-06-05 12:12] LABS: CREATININE 1.3 mg/dL (0.55-1.3)
[2022-06-05] MEDS: ATORVASTATIN CA 40 MG TABLET (FP) PO SCH (21:40)
[2022-06-05] MEDS: MELATONIN 5 MG TABLETS PO PRN (21:40)
[2022-06-05] MEDS: LIDOCAINE PATCH REMOVAL MC SCH (22:00)
[2022-06-06] MEDS: hydrALAZINE HCL 50 MG TABLET (FP) PO SCH ×3 (05:38→21:15)
[2022-06-06] MEDS: POLYETHYLENE GLYCOL (HEALTHYLAX) 3350 17 GM PACKET PO SCH (09:47)
[2022-06-06] MEDS: ASPIRIN 81 MG CHEWABLE TABLETS PO SCH (09:47)
[2022-06-06] MEDS: amLODIPine BESYLATE 5 MG TABLET (FP) PO SCH (09:47)
[2022-06-06] MEDS: LABETALOL HCL 100 MG TABLET (FP) PO SCH ×2 (09:47→21:29)
[2022-06-06] MEDS: LOSARTAN POTASSIUM 50 MG TABLET PO SCH (09:47)
[2022-06-06] MEDS: levETIRAcetam 500 MG TABLET (FP) PO SCH ×2 (09:47→21:15)
[2022-06-06] MEDS: LIDOCAINE 5% TOPICAL PATCH TP SCH (09:47)
[2022-06-06] MEDS: BUDESONIDE/FORMETEROL FUMARATE 160/4.5 mcg INHALER IH SCH ×2 (09:48→21:30)
[2022-06-06 11:02] LABS: CALCIUM 8.8 mg/dL (8.5-10.1)
[2022-06-06 11:03] LABS: BLOOD UREA NITROGEN 19.7 mg/dL (7-18)
[2022-06-06 11:06] LABS: CREATININE 1.2 mg/dL (0.55-1.3)
[2022-06-06] MEDS: ACETAMINOPHEN 325 MG TABLET (FP) PO PRN (21:15)
[2022-06-06] MEDS: ATORVASTATIN CA 40 MG TABLET (FP) PO SCH (21:15)
[2022-06-06] MEDS: MELATONIN 5 MG TABLETS PO PRN (21:15)
[2022-06-06] MEDS: LIDOCAINE PATCH REMOVAL MC SCH (21:32)
[2022-06-07] MEDS: hydrALAZINE HCL 50 MG TABLET (FP) PO SCH (05:57)
[2022-06-07] MEDS: LABETALOL HCL 100 MG TABLET (FP) PO SCH (10:35)
[2022-06-07] MEDS: LIDOCAINE 5% TOPICAL PATCH TP SCH (10:35)
[2022-06-07] MEDS: ASPIRIN 81 MG CHEWABLE TABLETS PO SCH (10:35)
[2022-06-07] MEDS: POLYETHYLENE GLYCOL (HEALTHYLAX) 3350 17 GM PACKET PO SCH (10:35)
[2022-06-07] MEDS: levETIRAcetam 500 MG TABLET (FP) PO SCH (10:35)
[2022-06-07] MEDS: amLODIPine BESYLATE 5 MG TABLET (FP) PO SCH (10:35)
[2022-06-07] MEDS: LOSARTAN POTASSIUM 50 MG TABLET PO SCH (10:35)
[2022-06-07] MEDS: ACETAMINOPHEN 325 MG TABLET (FP) PO PRN (10:36)
[2022-06-07] MEDS: BUDESONIDE/FORMETEROL FUMARATE 160/4.5 mcg INHALER IH SCH (10:36)
[2022-06-07] MEDS: PATIENT'S OWN MEDICATION (NON-FORMULARY) (Ertugliflozin Pidolate [Steglatro] 5 MG Tablet) PO SCH (13:16)
[2022-06-07 15:41] VITALS: BP 128/69; PULSE 63; RESP 18; TEMP 98.5
== END 2022-06-07 14:59 | disposition home health service (06) ==
LOC: JER 11:00 → JERBED 18:17 → INTOOBSV 18:17 → UNDOADMOB 18:17 → JERBED 06-04 10:52 → J6S 06-04 10:52 → JERBED 06-05 09:17 → J6S 06-05 09:17
PROVIDERS: ADMIT Hospitalist; ATTEND Internal Medicine
DX: M53.3 Sacrococcygeal disorders, not elsewhere classified (principal); G51.0 Bell's palsy; E11.9 Type 2 diabetes mellitus without complications; J45.909 Unspecified asthma, uncomplicated; I10 Essential (primary) hypertension; Z86.73 Personal history of transient ischemic attack (TIA), and cerebral infarction without residual deficits; Z87.891 Personal history of nicotine dependence; E66.8 Other obesity; Z68.36 Body mass index [BMI] 36.0-36.9, adult; R53.1 Weakness; Z29.8 Encounter for other specified prophylactic measures; Z88.0 Allergy status to penicillin; Z88.8 Allergy status to other drugs, medicaments and biological substances
CPT/HCPCS: 0241U-QW; 36415; 70450-TC; 71045-TC-FY; 72100-TC-FY; 72170-TC-FY; 73562-TC-LT-FY; 73562-TC-RT-FY; 76775-TC; 80048; 80053; 80061; 82550; 82962; 83036; 83735; 84100; 84484; 85025; 85027; 85610; 85730; 86850; 86900; 86901; 93005; 93010; 97116-GP; 97161-GP; 99285-25; C9803-CS; G0378; J1644; U0003; U0005

== ENCOUNTER 2022-06-13 11:00 | Emergency (ER) | payer OTHER ==
[2022-06-13 11:12] VITALS: BP 101/60; PULSE 65; RESP 16; TEMP 98; BMI 37.3
== END 2022-06-13 13:17 | disposition home or self-care (01) ==
LOC: JERFT 11:00
DX: Z48.02 Encounter for removal of sutures (principal)
CPT/HCPCS: 99281-25

== ENCOUNTER 2022-07-03 17:40 | Emergency (ER) | payer OTHER ==
[2022-07-03 17:56] VITALS: BP 143/87; PULSE 61; RESP 16; TEMP 97; BMI 29.9
[2022-07-03 20:55] LABS: BASO % 0.6 % (0-2.0); EOS % 2.3 % (0-4.5); HEMATOCRIT 42.2 % (35.4-49); HEMOGLOBIN 14.8 GM/dL (11.7-16.9); LYMPH % 28.4 % (8-40); MCH 31.5 pg (25.7-33.7); MCHC 35.1 g/dl (32.0-35.9); MEAN CELL VOLUME 89.7 fl (80-96); MEAN PLT VOLUME 8.1 fl (7.5-11.1); MONO % 5.9 % (3.8-10.2); NEUT % 62.8 % (42.8-82.8); PLATELET COUNT 310 10^3/uL (134-434); RDW 13.8 % (11.9-15.9)
[2022-07-03 21:19] LABS: ALBUMIN 3.3 g/dl (3.4-5.0); CALCIUM 8.8 mg/dL (8.5-10.1)
[2022-07-03 21:21] LABS: INR 1.07 (0.83-1.09); PROTHROMBIN TIME (PATIENT) 12.3 SEC (9.7-13.0)
[2022-07-03 21:23] LABS: ACTIVATED PTT 36.7 SECONDS (25.2-36.5)
[2022-07-03 21:24] LABS: BILIRUBIN,TOTAL 0.6 mg/dL (0.2-1); TOT PROT 6.2 g/dl (6.4-8.2)
[2022-07-03 22:22] LABS: EPI CELLS 5 /uL (0-25.1); HYALINE CASTS 3 /uL (0-3.1); URINE APPEARANCE CLEAR; URINE BACTERIA 11 /uL (0-1359); URINE BILIRUBIN NEGATIVE (NEGATIVE); URINE COLOR YELLOW; URINE GLUCOSE (UA) 2+ (NEGATIVE); URINE KETONE TRACE (NEGATIVE); URINE LEUK ESTERASE NEGATIVE (NEGATIVE); URINE NITRITE NEGATIVE (NEGATIVE); URINE PROTEIN 2+ (NEGATIVE); URINE RBC 8 /uL (0-23.9); URINE WBC 16 /uL (0-25.8)
[2022-07-03 22:24] LABS: PHENCYCLIDINE,URINE NEGATIVE (NEGATIVE); URINE BARBITURATES NEGATIVE (NEGATIVE); URINE BENZODIAZEPINES NEGATIVE (NEGATIVE)
[2022-07-03 22:25] LABS: COCAINE, UR NEGATIVE (NEGATIVE); URINE AMPHETAMINES NEGATIVE (NEGATIVE)
[2022-07-03 22:37] LABS: METHADONE, UR NEGATIVE (NEGATIVE); OPIATES, URI NEGATIVE (NEGATIVE)
== END 2022-07-04 00:39 | disposition home or self-care (01) ==
LOC: JER 17:40
DX: R03.0 Elevated blood-pressure reading, without diagnosis of hypertension (principal)
CPT/HCPCS: 36415; 70450-TC; 71045-TC-FY; 80053; 80307; 81003; 84439; 84443; 84481; 85025; 85610; 85730; 87086; 93005; 93010; 99284-25; C9803-CS; U0003; U0005

== ENCOUNTER 2023-02-12 10:46 | Emergency (ER) | payer OTHER ==
[2023-02-12 11:14] VITALS: BP 172/104; PULSE 78; RESP 18; TEMP 97.5; BMI 42.5
== END 2023-02-12 11:40 | disposition left against medical advice (07) ==
LOC: JER 10:46
DX: R42 Dizziness and giddiness (principal)
CPT/HCPCS: 93005; 93010; 99281-25

== ENCOUNTER 2023-03-03 12:39 | Emergency (ER) | payer OTHER ==
[2023-03-03 12:58] VITALS: BP 182/103; PULSE 77; RESP 19; TEMP 97.8; BMI 39.3
== END 2023-03-03 15:03 | disposition left against medical advice (07) ==
LOC: JER 12:39
DX: I10 Essential (primary) hypertension (principal); Z91.14 Patient's other noncompliance with medication regimen
CPT/HCPCS: 93005; 93010; 99283-25

== ENCOUNTER 2023-05-01 14:21 | Emergency (ER) | payer OTHER ==
[2023-05-01 15:13] VITALS: TEMP 97.7; BMI 45.9
[2023-05-01] MEDS ORDERED: METOCLOPRAMIDE HCL INJECTION 10 MG/2 ML VIAL IVPUSH ONE (15:32)
[2023-05-01] MEDS ORDERED: METOCLOPRAMIDE HCL INJECTION 10 MG/2 ML VIAL ONE (16:13)
[2023-05-01 16:47] LABS: BASO % 0.5 % (0-2.0); EOS % 1.9 % (0-4.5); HEMATOCRIT 50.6 % (35.4-49); HEMOGLOBIN 17.1 GM/dL (11.7-16.9); LYMPH % 25.4 % (8-40); MCH 30.7 pg (25.7-33.7); MCHC 33.8 g/dl (32.0-35.9); MEAN PLT VOLUME 8.7 fl (7.5-11.1); MONO % 7.7 % (3.8-10.2); NEUT % 64.5 % (42.8-82.8); PLATELET COUNT 340 10^3/uL (134-434); RBC 5.56 M/mm3 (4.00-5.60); RDW 12.9 % (11.9-15.9)
[2023-05-01 17:01] LABS: INR 1.03 (0.83-1.09)
[2023-05-01 17:04] LABS: ACTIVATED PTT 39.8 SECONDS (25.2-36.5)
[2023-05-01 17:09] LABS: POTASSIUM 4.3 mmol/L (3.5-5.1)
[2023-05-01 17:12] LABS: CALCIUM 9.5 mg/dL (8.5-10.1)
[2023-05-01 17:13] LABS: ALBUMIN 3.7 g/dl (3.4-5.0); BLOOD UREA NITROGEN 19.9 mg/dL (7-18); MAGNESIUM 2.4 mg/dL (1.8-2.4)
[2023-05-01 17:17] VITALS: BP 177/100; PULSE 67; RESP 14
[2023-05-01 17:17] LABS: BILIRUBIN,TOTAL 0.7 mg/dL (0.2-1)
[2023-05-01] MEDS ORDERED: SODIUM CHLORIDE 0.9% 500 ML INFUS.BAG IV ONE (17:31)
== END 2023-05-01 17:51 | disposition left against medical advice (07) ==
LOC: JER 14:21
PROC: 3E033GC Introduction of Other Therapeutic Substance into Peripheral Vein, Percutaneous Approach (ICD-10-PCS; principal; 2023-05-01)
DX: R42 Dizziness and giddiness (principal); Z53.21 Procedure and treatment not carried out due to patient leaving prior to being seen by health care provider; Z20.822 Contact with and (suspected) exposure to COVID-19
CPT/HCPCS: 0241U-QW; 36415; 70450-TC; 71045-TC-FY; 80053; 83735; 84484; 85025; 85610; 85730; 86850; 86900; 86901; 93005; 93010; 99285-25